=== PATIENT | male | born 1930 | race Caucasian/White ===

== ENCOUNTER 2018-06-24 11:16 | Emergency (ER) | payer MEDICARE ==
[~2018-06-24] VITALS: Ht 167.6 cm; Wt 73.5 kg
[~2018-06-24 11:16] MED LIST: ARICEPT5 MG PO; ASPIRIN81 MG PO; AUGMENTIN 875-1 EACH PO; CO Q-10 100 MG1 EACH PO; CRESTOR40 MG PO; LEVAQUIN500 MG PO; LOSARTAN POTASS25 MG PO; MAGNESIUM4 MEQ/1 M1 PO; METOPROLOL TART50 MG PO; SPIRONOLACTONE25 MG PO; TERAZOSIN HCL1 MG PO
[2018-06-24] MEDS ORDERED: CEPHALEXIN500 MG PO (12:07)
[2018-06-24] MEDS ORDERED: KEFLEX500 MG PO (12:11)
== END 2018-06-24 12:42 | disposition home or self-care (01) ==
LOC: FSED 11:16
DX: M54.5 Low back pain (principal); N30.90 Cystitis, unspecified without hematuria; F03.90 Unspecified dementia, unspecified severity, without behavioral disturbance, psychotic disturbance, mood disturbance, and anxiety; I10 Essential (primary) hypertension; E78.5 Hyperlipidemia, unspecified; I25.10 Atherosclerotic heart disease of native coronary artery without angina pectoris; Z85.46 Personal history of malignant neoplasm of prostate
CPT/HCPCS: 81003; 87086; 99283

== ENCOUNTER 2018-07-26 17:04 | Emergency (ER) | payer MEDICARE ==
[~2018-07-26] VITALS: Ht 167.6 cm; Wt 73.5 kg
[~2018-07-26 17:04] MED LIST changes: +CEPHALEXIN500 MG PO; +KEFLEX500 MG PO
[2018-07-26] MEDS ORDERED: SODIUM CHLORIDE 0.9% 500ML 500 ML IV ONE (18:00)
--- NOTE | 2018-07-26 18:07 | NUR ---
REPORT TO KONG GONGORA
[2018-07-26] MEDS ORDERED: ACETAMINOPHEN 325 MG TAB PO ONE (18:30)
--- NOTE | 2018-07-26 19:49 | Diagnostic Imaging Report ---
EXAMINATION: CXR 1 [facility] INDICATION: Cough, fever for 3 days COMPARISON: None FINDINGS: AP view TUBES and LINES: None. LUNGS: Lungs are well inflated. Lungs are clear. There is no evidence of pneumonia or pulmonary edema. PLEURA: No pleural effusion or pneumothorax. HEART AND MEDIASTINUM: The cardiomediastinal silhouette is unremarkable. BONES AND SOFT TISSUES: No acute osseous lesion. Soft tissues are unremarkable. UPPER ABDOMEN: No free air under the diaphragm. IMPRESSION: No acute thoracic abnormality. Signed by: DR. Travis Alcala MD on 07/26/2018 7:45 PM
[2018-07-26 20:18] LABS: BILIRUBIN,URINE NEGATIVE (NEGATIVE); KETONES,URINE NEGATIVE (NEGATIVE); LEUKOCYTE ESTERASE ,URINE TRACE (NEGATIVE); NITRITE,URINE NEGATIVE (NEGATIVE); PROTEIN,URINE DIPSTICK 2+ (NEGATIVE); URINE UROBILINOGEN 1 mg/dL (0.2 - 1)
[2018-07-26 20:26] LABS: CLARITY,URINE CLEAR (CLEAR); COLOR,URINE YELLOW (YELLOW); EPITHELIAL CELLS,URINE FEW /LPF; MUCUS,URINE FEW (RARE); WBC,URINE (MAN) 0-5 /HPF (0-5)
== END 2018-07-26 21:00 | disposition home or self-care (01) ==
LOC: FSED 17:04
DX: R05 Cough (principal); B34.9 Viral infection, unspecified; J00 Acute nasopharyngitis [common cold]
CPT/HCPCS: 71045; 81001; 87086; 99284; J7040